=== PATIENT | female | born 2000 | race Caucasian/White ===

== ENCOUNTER 2023-07-31 21:09 | Emergency (ER) | payer OTHER, SELFPAY ==
[2023-07-31 21:18] VITALS: BP 144/92
[2023-07-31 22:24] LABS: Urine Albumin Trace (Neg - Trace); Urine Bilirubin Negative (Negative); Urine Character Slightly Cloudy (Clear); Urine Color Yellow; Urine Glucose Negative (Negative); Urine Ketone Negative (Negative); Urine Leukocyte 2+ (Negative); Urine Nitrite Negative (Negative); Urine Occult Blood 1+ (Negative); Urine Specific Gravity 1.015 (<1.030); Urine Urobilinogen Negative (Neg - 1+); Urine pH 6.5 (5.0-9.0)
--- NOTE | 2023-07-31 22:43 | ED.GENMED ---
History of Present Illness
General
Chief Complaint: Urinary Symptoms
Source: patient and significant other
Time Seen by Provider: 07/31/23 21:43
Travel History
Have you had any contact with someone who has COVID-19?: No
Do you have any symptoms of coronavirus? Fever > 100 degrees, chills, cough, shortness of breath, sore throat, loss of taste or smell, muscle aches, or headache?: No
History of Present Illness
History of Present Illness:
23-year-old female history of interstitial cystitis who presents with persistent bladder pain as well as a little bit of right flank pain. Symptoms began about a week ago. Patient states that her symptoms typically do not last this long typically.
The patient reports that most of the time her symptoms just improve with time. She was given Valium by her urologist on Thursday and a urine culture was sent. She has been trying Tylenol and Advil without significant improvement. No vomiting.
She also was noted a little bit of blood in her urine.
Past History
Past History
ED Past Medical History: Psychiatric (Anxiety) and Other (IBS, interstitial cystitis)
Social History
Tobacco: Non-smoker
Employment: Student
Phy Exam
Physical Exam
Physical Exam:
CONSTITUTIONAL Patient alert and oriented to person, place and time. Well-appearing. Vital signs reviewed.
HEAD atraumatic, normocephalic.
EYES eyelids normal to inspection, Extraocular muscles intact, Conjunctiva normal, Sclera normal.
NECK normal range of motion, Trachea midline, no jugular venous distention.
RESPIRATORY CHEST No respiratory distress noted, Chest expansion equal, Bilateral breath sounds clear.
CARDIOVASCULAR regular rate and rhythm, Heart sounds normal.
ABDOMEN mild suprapubic tenderness, Bowel sounds normal. No distention.
BACK normal inspection, no obvious deformities, no CVA tenderness
UPPER EXTREMITY range of motion normal, Motor strength normal, no cyanosis, no edema.
LOWER EXTREMITY range of motion normal, Motor strength normal, no cyanosis, no edema.
NEURO Speech normal, No focal motor deficits, Ariana coma scale 15, Memory normal, Cranial Nerves intact to screening exam.
SKIN skin warm, dry, and normal in color.
PSYCHIATRIC patient oriented to person place and time, Normal affect.
Course
Orders/Labs/Results
Orders:
Orders
07/31/23 22:12
Urinalysis Reflex To Culture Urgent
Date Specimen was Collected: 07/31/23
Time Specimen was Collected: 21:54
Urine Microscopic Reflex Cult Urgent
Urine Culture Urgent
ROBER Source: U
Specimen Description:
Date Specimen was Collected: 07/31/23
Time Specimen was Collected: 21:54
07/31/23 23:22
Phenazopyridine HCl [Pyridium] 200 mg PO NOW STA
07/31/23 23:29
Cefuroxime Axetil [Ceftin] 500 mg PO NOW STA
07/31/23 23:30
US Renal With Bladder Urgent
Comment: bladder not full ok, looking at ureteral jets
Reason For Exam: flank pain, suprapubic pain
Abnormal Lab Results
07/31/23
22:12
Ur Occult Blood Reflex 1+ A
(Negative)
Leukocyte Esterase Rfl 2+ A
(Negative)
Urine RBC 3-6 A /HPF
(0-2)
Urine WBC (Reflex) >100 A /HPF
(0-5)
Urine Bacteria (Reflex) Few A
(Negative)
Vital Signs
Initial and Last Documented VS:
Initial Vital Signs
Temp Pulse Resp BP Pulse Ox
99.8 F 63 16 144/92 99
07/31/23 21:18 07/31/23 21:18 07/31/23 21:18 07/31/23 21:18 07/31/23 21:18
Last Documented Vital Signs
Temp Pulse Resp BP Pulse Ox
99.8 F 78 14 124/76 98
07/31/23 21:18 08/01/23 02:02 08/01/23 02:02 08/01/23 02:02 08/01/23 02:02
MDM/Problems Addressed
MDM/Problems Addressed:
Interstitial cystitis
*Radiology
Radiology exam reviewed: radiology read reviewed
*Pulse Oximetry
Patient hypoxic: no
*Critical Care Note
Total Time (30-74mins, 75-104mins- exclusive of procedures): Not Applicable
Data Reviewed
Review of Other/Old Records Reveals: Labs (Prior urinalysis reviewed showing positive nitrite) and Other (Prior urine culture reviewed.)
Source: patient
Further Testing Considered But Not Given:
Consider CT but ultrasound grossly
Patient Management
Escalation/DeEscalation of care consider admission/obs:
23-year-old female with history of interstitial cystitis. Presents with worsening symptoms. Does have a large amount of white cells and question whether that is related to interstitial cystitis versus infection. Cover with antibiotics. Okay for
outpatient follow-up. Patient recently started on Valium and amitriptyline. Add Pyridium. Recommended NSAIDs. Okay for discharge and outpatient follow-up with urology
ED Attending Note
-
Portions of this chart may have been created with voice recognition software.� Occasional wrong word or��sound alike� substitutions may have occurred due to the inherent limitations of voice recognition software.
Discharge Plan
Departure
Patient Disposition: Home (Routine Discharge)
Date of Disposition: 08/01/23
Time of Disposition: 01:56
Patient with high blood pressure during this ER visit?: No
Discharge Problem:
Chronic interstitial cystitis, Dysuria, Pyuria
Instructions: Bladder pain syndrome (interstitial cystitis), Abdominal Pain, Adult ED
Prescriptions:
New
cefuroxime axetil 500 mg tablet
500 mg PO BID 7 Days Qty: 14 0RF
phenazopyridine [Pyridium] 200 mg tablet
200 mg PO TID PRN (Reason: Pain) Qty: 20 0RF
No Action
prednisone 20 MG tablet
20 mg PO BID Qty: 10 0RF
Referrals:
Chin Gilbert MD [Family Provider] -
Activity Restrictions/Additional Instructions:
Return immediately for fevers, abdominal pain, back pain, worsening symptoms or any other concerns. Please see your urologist in follow-up in the next 1 week. Please use ibuprofen and Tylenol for pain control as discussed
Interventions
Interventions:
*Risk Screen - Suicide Last Done: 07/31/23 21:18
*General Assessment Last Done: 07/31/23 21:18
*Neglect/Abuse Screening Last Done: 07/31/23 21:18
ED-Female Genitourinary Assessment Last Done: 07/31/23 21:39
Discharge Date and Time
Print Language: TAJIK
[2023-07-31 22:47] LABS: Urine Bacteria Few (Negative); Urine White Cell >100 /HPF (0-5)
[2023-07-31 23:54] VITALS: BMI 22.5
[2023-08-01] MEDS: CEFTIN 500 MG PO (00:39)
[2023-08-01] MEDS: Pyridium 200 MG PO (00:39)
[2023-08-01 02:02] VITALS: BP 124/76
== END 2023-08-01 02:20 | disposition home or self-care (01) ==
LOC: EMR 21:09
PROVIDERS: EMERGENCY PHYSICIAN Emergency Medicine; FAMILY PHYSICIAN Internal Medicine
DX: N30.11 Interstitial cystitis (chronic) with hematuria (principal); R30.0 Dysuria; R82.81 Pyuria
CPT/HCPCS: 99284; 76770; 81003; 81015; 87086

== ENCOUNTER 2024-12-01 19:02 | Emergency (ER) | payer OTHER, SELFPAY ==
[2024-12-01 19:10] VITALS: BP 143/100
[2024-12-01 19:31] LABS: Hematocrit 41.9 % (37.0-47.0); Hemoglobin 13.7 g/dL (12.0-16.0); Mean Corp Hgb Conc. 32.7 g/dL (33.0-37.0); Mean Corpuscular Volume 79.1 fL (81.0-99.0); Nucleated Red Blood Cells % 0 %; Platelet Count 300 10^3/uL (130-400); Red Cell Dist. Width 13.3 % (11.5-14.5)
[2024-12-01 19:34] LABS: Urine Character Clear (Clear)
[2024-12-01 19:45] LABS: ALT (SGPT) 23 U/L (0-35); AST (SGOT) 23 U/L (14-36); Albumin 5.5 g/dl (3.5-5.0); Alkaline Phosphatase 85 U/L (38-126); Blood Urea Nitrogen 12 mg/dl (7-17); Calcium 10.5 mg/dl (8.4-10.2); Carbon Dioxide 26 mmol/L (22-30); Chloride 104 mmol/L (98-107); Glucose 105 mg/dl (70-99); Potassium 4.4 mmol/L (3.5-5.1); Sodium 140 mmol/L (135-145); Total Protein 8.7 g/dl (6.3-8.2); eGFR > 60.00
[2024-12-01 20:45] LABS: Urine Squamous Cell 16-20 /LPF (Few)
[2024-12-01 20:46] LABS: Urine Red Blood Cell 0-2 /HPF (0-2)
[2024-12-01 21:17] VITALS: BMI 20.8
[2024-12-01] MEDS: NSS 1000 IV (21:32)
[2024-12-01] MEDS: TORADOL 15 MG IV (21:33)
[2024-12-01] MEDS: OMNIPAQUE 50 ML PO (21:34)
[2024-12-01 22:15] LABS: HCG, Serum Qualitative Screen Negative
[2024-12-01 23:06] VITALS: BP 122/85
--- NOTE | 2024-12-01 23:17 | ED.GENMED ---
History of Present Illness
General
Chief Complaint: Abdominal Symptoms
Source: patient
Exam Limitations: none
Time Seen by Provider: 12/01/24 21:04
Nursing documentation reviewed up to this point in time: agreed with
History of Present Illness
History of Present Illness:
Patient is a healthy 24-year-old female who presents to the emergency department for evaluation of right sided abdominal pain. Patient states symptoms initially started around 10:30 AM while she was sitting at her desk and has been relatively
constant. She describes a cramping pain localized along the right side of her abdomen. She denies any radiation of pain into her back. She states pain is somewhat exacerbated with certain movements and standing.She has not had any associated
fever, vomiting, diarrhea or constipation. No urinary symptoms. She does note that she has had very little appetite today. No abnormal vaginal bleeding or discharge.
No history of abdominal surgeries. No known sick contacts.
Past History
Past History
ED Past Medical History: Psychiatric (Anxiety) and Other (IBS, interstitial cystitis)
Social History
Tobacco: Non-smoker
Employment: Student
Review of Systems
Review of Systems
Allergies reviewed?: Yes
All Other Systems: ROS reviewed and negative except as documented in HPI and ROS
Phy Exam
Physical Exam
Physical Exam:
Vitals: Hypertensive and mildly tachycardic on arrival. Otherwise stable. Afebrile
General: Patient is well appearing, no acute distress
Skin: Warm and dry, no rashes or lesions
Head: Normocephalic, atraumatic
Eyes: Sclera nonicteric.
Throat: Protecting airway
Neck: Normal ROM, no cervical spine tenderness, no meningismus
Cardiac: Regular rate and rhythm, no murmurs.
Pulm: Normal respiratory effort, no wheezes, rales, rhonchi heard on exam
Abdomen: Abdomen soft. Mild tenderness in right mid and right lower quadrant. No rebound tenderness or guarding. No tenderness in right or left pelvic region. No CVA tenderness
Extremities: No evidence of cyanosis or edema. 2+ palpable DP pulses bilaterally
Neuro: AAOx3. Grossly intact.
Psychiatric: Normal affect.
Course
Orders/Labs/Results
Orders:
Orders
12/01/24 19:23
Complete Blood Count/With Diff Urgent
Comprehensive Metabolic Panel Urgent
HCG, Serum Qualitative Screen Urgent
Comment: ADD ON
Urinalysis Reflex To Culture Urgent
Date Specimen was Collected: 12/01/24
Time Specimen was Collected: 19:13
Urine Microscopic Reflex Cult Urgent
Urine Culture Urgent
ROBER Source: U
Specimen Description:
Date Specimen was Collected: 12/01/24
Time Specimen was Collected: 19:13
12/01/24 21:03
Test Result ONCE
12/01/24 21:14
0.9% Sodium Chloride 1000 ml [Nss] 1,000 ml IV BOLUS
Ketorolac [Toradol] 15 mg IV NOW STA
12/01/24 21:18
Iohexol [Omnipaque] See Protocol PO NOW STA
12/01/24 21:19
CT Abd/pel W Iv And Oral Contr Urgent
Comment:
Reason For Exam: RLQ pain
12/01/24 21:38
Add On- LAB Urgent
Tests Added?: hcg qualitative
Abnormal Lab Results
12/01/24
19:23
MCV 79.1 L fL
(81.0-99.0)
MCH 25.8 L pg
(27.0-31.0)
MCHC 32.7 L g/dL
(33.0-37.0)
Glucose 105 H mg/dl
(70-99)
Calcium 10.5 H mg/dl
(8.4-10.2)
Total Protein 8.7 H g/dl
(6.3-8.2)
Albumin 5.5 H g/dl
(3.5-5.0)
Leukocyte Esterase Rfl 1+ A
(Negative)
Urine Bacteria (Reflex) Few A
(Negative)
12/01/24 19:23
12/01/24 19:23
Vital Signs
Initial and Last Documented VS:
Initial Vital Signs
Temp Pulse Resp BP Pulse Ox
97.8 F 105 18 143/100 98
12/01/24 19:10 12/01/24 19:10 12/01/24 19:10 12/01/24 19:10 12/01/24 19:10
Last Documented Vital Signs
Temp Pulse Resp BP Pulse Ox
97.8 F 87 18 118/80 99
12/01/24 19:10 12/02/24 00:09 12/02/24 00:09 12/02/24 00:09 12/02/24 00:09
MDM/Problems Addressed
Differential Diagnosis Includes:
Not limited to: Viral gastroenteritis, mesenteric adenitis, acute appendicitis, biliary colic, acute cholecystitis, constipation, less likely pelvic etiology etc.
MDM/Problems Addressed:
24-year-old female with eight hours of crampy right sided abdominal pain associated with low appetite. No fever, vomiting, diarrhea, or urinary symptoms. No inciting injury or trauma. Vital signs stable on arrival and she is afebrile � patient very
well appearing, in no apparent distress. She�s nontoxic. Abdomen soft with mild tenderness in both right mid/right lower abdomen. No rebound tenderness. No tenderness in pelvic region.
Differential broad. Possible viral enteritis, mesenteric adenitis, constipation. Appendicitis would be on differential. Much less suspicious of pelvic etiology given location of pain.
Plan: labs, urinalysis. Obtain CT scan abdomen/pelvis with PO and IV contrast. Will treat symptoms and reassess.
Update: Labs unremarkable. No leukocytosis. Chemistry without acute abnormalities. Urine does not show any evidence of infection. CT scan shows findings of mild enteritis. Appendix and gallbladder normal. No other acute intra-abdominal findings.
I discussed findings with patient and patient�s father at bedside. She remains very well and comfortable appearing. Her abdomen remains soft.
Feel stable for discharge home with supportive care and strict return precautions. Advised patient to stay well hydrated, follow bland diet. Patient and patient�s father comfortable with plan. All questions answered.
Chronic conditions affecting care:
N/A
Acute Exacerbation and/or Progression of Chronic Illness:
N/A
*Radiology
Radiology exam reviewed: radiology read reviewed
*Pulse Oximetry
SaO2: 100
Oxygen Mode of Delivery: Room air
Patient hypoxic: no
*EKG
Interpreted by ED Provider?: NA
*Mobile Application Developer Interpretation
Rate: Mobile Application Developer- N/A
*Critical Care Note
Total Time (30-74mins, 75-104mins- exclusive of procedures): Not Applicable
ED Attending Note
-
Portions of this chart may have been created with voice recognition software.� Occasional wrong word or��sound alike� substitutions may have occurred due to the inherent limitations of voice recognition software.
Discharge Plan
Departure
Patient Disposition: Home (Routine Discharge)
Date of Disposition: 12/01/24
Time of Disposition: 23:58
Patient with high blood pressure during this ER visit?: Yes
Condition: Good
Discharge Problem:
Enteritis, Abdominal pain
Instructions: [place] Diet, Abdominal Pain, BLOOD PRESSURE
Prescriptions:
New
ondansetron 4 mg tablet,disintegrating
4 mg PO Q8H PRN (Reason: nausea and vomiting) Qty: 5 0RF
No Action
prednisone 20 MG tablet
20 mg PO BID Qty: 10 0RF
cefuroxime axetil 500 mg tablet
500 mg PO BID 7 Days Qty: 14 0RF
phenazopyridine [Pyridium] 200 mg tablet
200 mg PO TID PRN (Reason: Pain) Qty: 20 0RF
Referrals:
Chin Gilbert MD [Family Provider, Internal Medicine] - Follow up in 5-7 days
Activity Restrictions/Additional Instructions:
RETURN TO THE EMERGENCY DEPARTMENT WITH ANY FEVER, CHILLS, PERSISTENT/WORSENING ABDOMINAL PAIN, PERSISTENT LACK OF APPETITE, INTRACTABLE NAUSEA/VOMITING, WORSENING CURRENT SYMPTOMS, OR ANY OTHER CONCERNS
- As discussed�your lab work showed no acute abnormalities today in the emergency department. Your urine does not appear infected. Your CT scan does show findings of possible enteritis. This may be viral in nature.
- Please treat symptoms supportively at home with Tylenol, Motrin as needed for pain. A prescription for Zofran has been sent to the pharmacy for persistent nausea. It is important stay well-hydrated and follow a bland diet over the next few days.
- Follow-up with primary care for further evaluation/management and to ensure that symptoms are improving
Monitor your symptoms closely and return to the emergency department with any acute worsening/new symptoms or any other concerns
Interventions
Interventions:
*Risk Screen - Suicide Last Done: 12/01/24 21:00
*General Assessment Last Done: 12/01/24 21:00
*Neglect/Abuse Screening Last Done: 12/01/24 21:00
*ED- Fall Risk Assessment Last Done: 12/01/24 21:00
*ED COVID-19 Vaccine History Last Done: 12/01/24 21:00
*Nursing Disposition Last Done: 12/02/24 00:10
RV-Eldbwo-Tkrgbaotln Assessment Last Done: 12/01/24 21:00
Discharge Date and Time
Discharge Date/Time: 12/02/24 00:10
Print Language: [place] CITIZ[place]
[2024-12-02 00:09] VITALS: BP 118/80
== END 2024-12-02 00:10 | disposition home or self-care (01) ==
LOC: EMR 19:02
PROVIDERS: Emergency Medicine; EMERGENCY PHYSICIAN Student in an Organized Health Care Education/Training Program; FAMILY PHYSICIAN Internal Medicine
DX: K52.9 Noninfective gastroenteritis and colitis, unspecified (principal); R03.0 Elevated blood-pressure reading, without diagnosis of hypertension; F41.9 Anxiety disorder, unspecified; N30.10 Interstitial cystitis (chronic) without hematuria
CPT/HCPCS: 99284; 96374; 96361; 74177; 80053; 81003; 81015; 84703; 85025; 87086; Q9967

== ENCOUNTER → 2025-03-06 11:18 | Outpatient (REF) | payer OTHER, SELFPAY | LOC: MRI 3T 11:18 | PROVIDERS: ATTENDING PHYSICIAN Internal Medicine; FAMILY PHYSICIAN Internal Medicine | DX: Z15.01 Genetic susceptibility to malignant neoplasm of breast (principal); Z15.02 Genetic susceptibility to malignant neoplasm of ovary; Z15.09 Genetic susceptibility to other malignant neoplasm; Z15.068 Genetic susceptibility to other malignant neoplasm of digestive system; Z15.89 Genetic susceptibility to other disease; Z15.07 Genetic susceptibility to malignant neoplasm of urinary tract; Z15.05 Genetic susceptibility to malignant neoplasm of fallopian tube(s) | CPT/HCPCS: 77049; A9585 ==